=== PATIENT | female | born 1990 | race Caucasian/White ===

== ENCOUNTER 2021-02-03 20:30 | Emergency (ER) | payer MEDICAID ==
[~2021-02-03] VITALS: Ht 172.7 cm; Wt 78.0 kg
[2021-02-03 20:34] VITALS: BP 128/83
== END 2021-02-03 22:12 | disposition left against medical advice (07) ==
LOC: ER 20:30
DX: Z53.21 Procedure and treatment not carried out due to patient leaving prior to being seen by health care provider (principal); G40.909 Epilepsy, unspecified, not intractable, without status epilepticus; I49.9 Cardiac arrhythmia, unspecified
CPT/HCPCS: 93005

== ENCOUNTER 2021-02-11 00:15 | Inpatient (IN) | payer OTHER, MEDICAID ==
[~2021-02-11] VITALS: Ht 172.7 cm; Wt 118.4 kg
[2021-02-11 02:40] LABS: BASOPHILS % 0.2 % (0.0-2.0); EOSINOPHILS % 0.6 % (0.0-5.0); HEMATOCRIT. 40.1 % (36.0-48.0); HEMOGLOBIN. 13.3 g/dL (12.0-16.0); LYMPHOCYTES % 9.4 % (20.0-50.0); MEAN CORPUSCULAR HEMOGLOBIN 29.6 pg (28.0-32.0); MEAN CORPUSCULAR VOLUME 89.2 fL (81.0-99.0); MEAN PLATELET VOLUME 8.3 fl (7.4-10.4); MONOCYTES % 6.1 % (2.0-8.0); NEUTROPHILS % 83.7 % (40.0-76.0); PLATELET 312 x1000/uL (130-400); RED CELL DISTRIBUTION WIDTH 13.7 % (11.6-14.6)
[2021-02-11 02:54] LABS: HCG SCREEN NEGATIVE
[2021-02-11 02:58] LABS: CHLORIDE 107 mEq/L (98-107)
[2021-02-11] MEDS ORDERED: ACETAMINOPHEN 325MG TABLET PO ONE (03:00)
[2021-02-11 03:07] LABS: CREATINE KINASE 150 IU/L (26-192)
[2021-02-11] MEDS ORDERED: LORAZEPAM 2MG/ML CPJ IV ONE (03:15)
[2021-02-11 05:50] LABS: CLARITY URINE CLEAR (CLEAR); COLOR URINE YELLOW (YELLOW); KETONES URINE NEGATIVE (NEGATIVE); LEUKOCYTE ESTERASE URINE NEGATIVE (NEGATIVE); NITRITE URINE NEGATIVE (NEGATIVE); OCCULT BLOOD URINE TRACE (NEGATIVE); PROTEIN URINE NEGATIVE (NEGATIVE); SPECIFIC GRAVITY URINE 1.016 (1.005-1.030); UROBILINOGEN URINE 0.2 E.U./dL (0.2-1.0)
[2021-02-11 15:20] VITALS: BP 126/85
[2021-02-11 15:30] VITALS: BP 126/85
[2021-02-11] MEDS ORDERED: LORAZEPAM 2MG/ML CPJ IV PRN (16:15)
[2021-02-11] MEDS ORDERED: ONDANSETRON HCL 4MG/2ML INJ IV PRN (16:15)
[2021-02-11] MEDS ORDERED: LEVE1000 PO (16:26)
[2021-02-11] MEDS ORDERED: FOLI-43 MT (16:26)
[2021-02-11] MEDS ORDERED: LACO200T2 PO (16:26)
[2021-02-11] MEDS ORDERED: [UNRECOGNIZED DRUG - CODE] PO (16:26)
[2021-02-11 18:56] LABS: *AMPHETAMINES SCREEN URINE NEGATIVE (NEGATIVE); *BARBITURATES SCREEN URINE NEGATIVE (NEGATIVE); *BENZODIAZEPINES SCREEN URINE NEGATIVE (NEGATIVE); *COCAINE SCREEN URINE NEGATIVE (NEGATIVE); METHADONE URINE SCREEN NEGATIVE (NEGATIVE); OPIATES URINE SCREEN NEGATIVE (NEGATIVE)
[2021-02-11 18:58] LABS: CANNABINOID URINE SCREEN NEGATIVE (NEGATIVE); PHENCYCLIDINE URINE SCREEN NEGATIVE (NEGATIVE)
[2021-02-11 20:00] VITALS: BP 125/87
[2021-02-11] MEDS: LAMOTRIGINE 150MG TABLET PO SCH (20:04)
[2021-02-11] MEDS: LEVETIRACETAM 500MG TABLET PO SCH (20:05)
[2021-02-11] MEDS: ACETAMINOPHEN 325MG TABLET PO PRN (20:18)
[2021-02-11] MEDS ORDERED: LEVETIRACETAM 500MG TABLET PO SCH (21:00)
[2021-02-11] MEDS ORDERED: LAMO200T50 PO (22:27)
[2021-02-11] MEDS ORDERED: LAMO100T65 MT (22:27)
[2021-02-11] MEDS: VIMPAT 200 MG PO SCH (22:57)
[2021-02-12] VITALS: BP 119/81
[2021-02-12 03:42] VITALS: BP 107/72
[2021-02-12] MEDS: ACETAMINOPHEN 325MG TABLET PO PRN (07:11)
[2021-02-12 08:00] VITALS: BP 102/70
[2021-02-12] MEDS ORDERED: FOLIC ACID 1MG TABLET PO SCH (09:00)
[2021-02-12] MEDS ORDERED: MEDICATION NOT ON FORMULARY EA (Levetiracetam (Keppra) 1,000 MG) PO SCH (09:00)
[2021-02-12] MEDS ORDERED: LAMOTRIGINE PO SCH (09:00)
[2021-02-12] MEDS: LAMOTRIGINE 150MG TABLET PO SCH (09:36)
[2021-02-12] MEDS: VIMPAT 200 MG PO SCH (09:37)
[2021-02-12] MEDS: LEVETIRACETAM 500MG TABLET PO SCH (09:37)
[2021-02-12 10:09] VITALS: BP 102/70
[2021-02-12 12:00] VITALS: BP 115/72
[2021-02-12 12:10] VITALS: BP 115/73
== END 2021-02-12 13:33 | disposition home or self-care (01) | DRG 101 ==
LOC: ER 00:15 → 6WST 03:07 → ENRESERV 11:45
PROVIDERS: ADMIT Internal Medicine; ATTEND Internal Medicine
DX: G40.909 Epilepsy, unspecified, not intractable, without status epilepticus (principal); F41.9 Anxiety disorder, unspecified; Z88.0 Allergy status to penicillin; Z79.899 Other long term (current) drug therapy
CPT/HCPCS: 36415; 80053; 80305; 81003; 82542; 82550; 84703; 85025; 93005; 99285; J2060